=== PATIENT | female | born 1940 | race Caucasian/White ===

== ENCOUNTER 2023-08-01 14:45 | Observation (INO) | payer MEDICARE, SELFPAY ==
[2023-08-01 14:49] VITALS: BP 121/80; PULSE 69; RESP 18; TEMP 36.2; O2SAT 100; BMI 25.7
--- NOTE | 2023-08-01 15:33 | ED.GENADULT ---
HPI - General Adult General Chief complaint: Extremity Pain/Injury, Lower <Gavin Aguilera MD - Last Filed: 08/01/23 17:42> Stated complaint: Hip, L leg pain <Gavin Aguilera MD - Last Filed: 08/01/23 17:42> Time Seen by Provider: 08/01/23 14:50 <Gavin Aguilera MD - Last Filed: 08/01/23 17:42> History of Present Illness HPI narrative: Patient presents to the emergency department complaining of left leg pain. Patient fell the week of and has been dealing with pain in her left leg. Per patient she was diagnosed with stress fractures for this she was given tramadol and pain has been notably worse for the last few weeks. 82-year-old woman presenting to the emergency department with worsening left hip area pain. Was seen in affiliated urgent care and diagnosed with a left pubic ramus fracture on plain film/ x-ray imaging in mid May following a fall. Subsequently with persistent left hip/left leg pain was seen on 07/25 by orthopedics. We are able to obtain imaging results and notes from these encounters at [facility]. Was initiated on tramadol for pain relief at this time. Evidently XR pelvis one view was unremarkable at that time but MRI images were ordered outpatient. These MRI images of left hip and pelvis were completed on 07/28 showing nondisplaced insufficiency fractures of both sacral alae and left superior and inferior pubic rami fractures along with a fluid collection measuring 3-1/2 by nearly 5 cm suspected to be subacute hematoma within the left obturator externus musculature. No intervention apparently recommended yet. See has been experiencing some constipation. Denies dysuria or frequency. On exam I note that she is wearing a Attends and there is a light smell of urine. Has been able to ambulate with a cane but it has caused a lot of pain. Over the few days has had increasing pain just ?terrible pain?. Tramadol is not helpful. 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 <Gavin Aguilera MD - Last Filed: 08/01/23 17:42> Related Data Home medications: Home Medications ?Medication ?Instructions ?Recorded ?Confirmed amlodipine 5 mg tablet 5 mg PO DAILY 06/16/23 06/16/23 escitalopram oxalate 20 mg tablet 20 mg PO DAILY 06/16/23 06/16/23 lisinopril 20 1 tab PO DAILY 06/16/23 06/16/23 mg-hydrochlorothiazide 25 mg tablet <Gavin Aguilera MD - Last Filed: 08/01/23 17:42> Allergies/adverse reactions: Allergies Allergy/AdvReac Type Severity Reaction Status Date / Time Penicillins Allergy Verified 08/01/23 17:07 <Gavin Aguilera MD - Last Filed: 08/01/23 17:42> Review of Systems Status of ROS: Reports: 6 or more systems reviewed and unremarkable except as noted in History and below <Gavin Aguilera MD - Last Filed: 08/01/23 17:42> PFSH PFS Social History: Social History Smoking Status: Never smoker Do you use any of these nicotine containing products: None Second hand tobacco smoke exposure: No How often do you have a drink containing alcohol: never AUDIT-C Alcohol total score: 0 Non-prescribed substance use: denies use service: No <Gavin Aguilera MD - Last Filed: 08/01/23 17:42> Exam Narrative: Exam Narrative: Very pleasant. Mildly anxious in apparent discomfort. Tries to cooperate with exam and assists to role in exam were groaning in pain. She is breathing easily lungs appear to be clear. Heart in regular rate and rhythm. No significant lower extremity edema noted. Abdomen is soft and full in the lower abdomen. She is mildly tender to palpation in the mid suprapubic area and onto the pubic symphysis and again at the anterior iliac crest on the left. She has no inflammatory changes or bruising evident about the hips. The left upper gluteal musculature is quite tender without discrete swelling appreciated and is tender generally about the left greater trochanter. <Gavin Aguilera MD - Last Filed: 08/01/23 17:42> Const: Vital Signs, click to edit/add: Vital Signs - 24 hr 08/01/23 14:49 Temperature 97.2 F L Pulse Rate [Left P ulse Oximeter] 69 Respiratory Rate 18 Blood Pressure [Le ft Upper Arm] 121/80 Pulse Oximetry 100 Oxygen Delivery Me thod Room Air <Gavin Aguilera MD - Last Filed: 08/01/23 17:42> Vital Signs, click to edit/add: Vital Signs - 24 hr 08/01/23 14:49 Temperature 97.2 F L Pulse Rate [Left P ulse Oximeter] 69 Respiratory Rate 18 Blood Pressure [Le ft Upper Arm] 121/80 Pulse Oximetry 100 Oxygen Delivery Me thod Room Air <Waqar Worrell MD - Last Filed: 08/01/23 19:59> Documenting provider has reviewed patient's vital signs: yes <Gavin Aguilera MD - Last Filed: 08/01/23 17:42> Course Course ED Course: Patient signed at the Dr. Worrell at shift change -17 30. 82-year-old female with a conical fall about 8 or 9 weeks ago around [facility] leading to pelvic pain. You know she is already been diagnosed with low nondisplaced pubic rami fracture. She apparently we had already had follow-up with [facility]. She had an MRI. She has been told that her fractures are nonoperative. They are trying to treat her pain with tramadol. Patient and family report tramadol has been Holy ineffective in managing her pain. She is having progressively worsening pain in her left groin and left buttock for the past week. No new falls. They came here to the ER [place] today saying her pain is uncontrolled. She was not able to sleep last night and she is having a lot of pain when she walks. Dr. Espinoza ordered repeat CT scan Impression: 1. Left pubic tubercle fracture with extension to the superior and inferior pubic rami with hematoma formation in the left obturator externus muscle as detailed above. 2. Small focus of chondroid calcification seen adjacent to the left acetabulum. Recommend correlation with prior imaging if available; otherwise, when patient`s clinical course improves, recommend dedicated contrast MR examination of the left hip for further examination. We do not have imaging from previous MRI for comparison. However there is her report from the MRI done at [facility] on 07/28 Impression: 1. Insufficiency fractures of both the sacral alae. There is much more edema on the left and these may be differing chronicity. No significant displacement 2. Insufficiency fractures on the left pubic rami. Surrounding bony edema extends into the pubic symphysis 3. Both hips negative for fracture 4. Degenerative changes of both hip joints 5. There is a presumed fluid collection within the left obturator externus adjacent to the pubic rami fractures which most likely represents a subacute hematoma. This measures 3.3 x 3.4 x 4.8 cm 6. Degenerative change at the SI joints bilaterally 7. Reactive edema versus muscle strain within the left obturator externus and pectineus 8. Chronic appearing tendinopathy and partial tearing of the gluteal tendons with fluid in the trochanteric bursa bilaterally. Findings are likely chronic as there is some fatty infiltration and atrophy of the gluteal musculature bilaterally. I recheck the patient. She had had some good improvement of her pain after receiving 2 Hubertus tablets ordered by Dr. Roque. However after about 2 hours for pain was recurring. Not as bad as prior to the pain meds but still not tolerable for the patient. She was not really able to get up and do an ambulation trial because of pain. She did write a wheelchair down the hallway and was able to transfer onto the toilet and back. In long discussion with the patient and her family we do not feel that it is a good option for her to discharge home with oral pain meds since she is really not adequately controlled on hydrocodone and likely would have unsuccessful pain management with oral oxycodone. Therefore will administer IV Dilaudid 0.5 mg IV here. We will admit to the hospitalist for pain control. We also consulted with Orthopedics. Discussed with Nkechi MA. They will consult in the morning. Pubic rami and nondisplaced sacral alar fractures typically managed non operatively. They may need to repeat MRI to recheck possible left acetabular abnormality noted on the CT scan today. Patient is agreeable to be admitted for pain control. Family agreeable. Accepted by Dr. Aguirre <Waqar Worrell MD - Last Filed: 08/01/23 19:59> Vital Signs Vital signs: Initial Vital Signs Temperature 97.2 F L 08/01/23 14:49 Temperature Source Temporal Artery Scan 08/01/23 14:49 Pulse Rate 69 08/01/23 14:49 Pulse Rhythm Regular 08/01/23 14:49 Pulse Strength 3+ Normal 08/01/23 14:49 Respiratory Rate 18 08/01/23 14:49 Blood Pressure 121/80 08/01/23 14:49 Blood Pressure Mean 93 08/01/23 14:49 Blood Pressure Position Sitting 08/01/23 14:49 Pulse Oximetry 100 06/03/24 14:49 Oxygen Delivery Method Room Air 08/01/23 14:49 Vital Signs Temperature 97.2 F L 08/01/23 14:49 Pulse Rate 69 08/01/23 14:49 Respiratory Rate 18 08/01/23 14:49 Blood Pressure 121/80 08/01/23 14:49 Pulse Oximetry 100 08/01/23 14:49 Oxygen Delivery Method Room Air 08/01/23 14:49 Temperature 97.2 F L 08/01/23 14:49 Pulse Rate 69 08/01/23 14:49 Respiratory Rate 18 08/01/23 14:49 Blood Pressure 121/80 08/01/23 14:49 Pulse Oximetry 100 08/01/23 14:49 Oxygen Delivery Method Room Air 08/01/23 14:49 <Gavin Aguilera MD - Last Filed: 08/01/23 17:42> Initial Vital Signs Temperature 97.2 F L 08/01/23 14:49 Temperature Source Temporal Artery Scan 08/01/23 14:49 Pulse Rate 69 08/01/23 14:49 Pulse Rhythm Regular 08/01/23 14:49 Pulse Strength 3+ Normal 08/01/23 14:49 Respiratory Rate 18 08/01/23 14:49 Blood Pressure 121/80 08/01/23 14:49 Blood Pressure Mean 93 08/01/23 14:49 Blood Pressure Position Sitting 08/01/23 14:49 Pulse Oximetry 100 08/01/23 14:49 Oxygen Delivery Method Room Air 08/01/23 14:49 Vital Signs Temperature 97.2 F L 08/01/23 14:49 Pulse Rate 69 08/01/23 14:49 Respiratory Rate 18 08/01/23 14:49 Blood Pressure 121/80 08/01/23 14:49 Pulse Oximetry 100 08/01/23 14:49 Oxygen Delivery Method Room Air 08/01/23 14:49 Temperature 97.2 F L 08/01/23 14:49 Pulse Rate 69 08/01/23 14:49 Respiratory Rate 18 08/01/23 14:49 Blood Pressure 121/80 08/01/23 14:49 Pulse Oximetry 100 08/01/23 14:49 Oxygen Delivery Method Room Air 08/01/23 14:49 <Waqar Worrell MD - Last Filed: 08/01/23 19:59> Medications Administered Medications: Generic Name Dose Route Start Last Admin Trade Name Freq PRN Reason Stop Dose Admin Hydromorphone HCl 0.5 mg 08/01/23 19:05 08/01/23 19:15 Hydromorphone 0.5 Mg/0.5 Ml Inj IVP 0.5 mg Q1H PRN Administration Pain Discontinued Medications Generic Name Dose Route Start Last Admin Trade Name Freq PRN Reason Stop Dose Admin Hydrocodone Bitart/Acetaminophen 2 tab 08/01/23 15:25 08/01/23 15:38 Hydrocodone-Acetamin 5-325 Mg 1 Tab PO 08/01/23 15:26 2 tab ONCE ONE Administration Sodium Chloride 1,000 mls @ 1,000 mls/hr 08/01/23 16:02 08/01/23 17:42 0.9 % Sodium Chloride 1000 Ml IV 08/01/23 17:01 Infused .Q1H ONE Infusion Senna/Docusate Sodium 1 tab 08/01/23 15:24 08/01/23 15:38 Sennosides/Docusate Tablet PO 08/01/23 15:25 1 tab ONCE ONE Administration <Gavin Aguilera MD - Last Filed: 08/01/23 17:42> Generic Name Dose Route Start Last Admin Trade Name Freq PRN Reason Stop Dose Admin Hydromorphone HCl 0.5 mg 08/01/23 19:05 08/01/23 19:15 Hydromorphone 0.5 Mg/0.5 Ml Inj IVP 0.5 mg Q1H PRN Administration Pain Discontinued Medications Generic Name Dose Route Start Last Admin Trade Name Freq PRN Reason Stop Dose Admin Hydrocodone Bitart/Acetaminophen 2 tab 08/01/23 15:25 08/01/23 15:38 Hydrocodone-Acetamin 5-325 Mg 1 Tab PO 08/01/23 15:26 2 tab ONCE ONE Administration Sodium Chloride 1,000 mls @ 1,000 mls/hr 08/01/23 16:02 08/01/23 17:42 0.9 % Sodium Chloride 1000 Ml IV 08/01/23 17:01 Infused .Q1H ONE Infusion Senna/Docusate Sodium 1 tab 08/01/23 15:24 08/01/23 15:38 Sennosides/Docusate Tablet PO 08/01/23 15:25 1 tab ONCE ONE Administration <Waqar Worrell MD - Last Filed: 08/01/23 19:59> Medical Decision Making MDM Narrative Medical decision making narrative: Initially did not have documentation from [facility]. Need to clarify really what this imaging was. I would have concern at this point expanding hematoma given the escalation in pain that she describes. Could simply be inadequate pain management for existing fractures. These would otherwise be nonoperable fractures. She does not describe radicular symptoms consistent with lumbar spine injury or radiculopathy in that regard. On imaging I would anticipate evaluating for urinary retention with overflow incontinence as well. Would like to trial some oral pain management as will need to transition to that regardless of whether not will be hospitalized. Did give 2 tablets of 5/325 Hubertus along with a tablet of senna. Gave a L of normal saline IV as well. On reassessment is a little bit sleepy but clearly markedly improved. Seems relieved. She is flexing her left thigh without apparent pain. Labs did return with sodium of 127. Will need to clarify chronicity here. She does take Dyazide. I would presume will be approximately 129 after fluid resuscitation given here today. Pending yet had handoff at change of shift is IV contrasted imaging of her pelvis. At this point would need to reassess for adequate management of pain such that she could manage at home with family support verses admission or surgical intervention for expanding hematoma. Pending also is urinalysis. Hemoglobin is good at 13.3. Will need follow-up for hyponatremia as well. <Gavin Aguilera MD - Last Filed: 08/01/23 17:42> Medical Records Medical records reviewed: Yes I reviewed the patient's medical records <Gavin Aguilera MD - Last Filed: 08/01/23 17:42> Lab Data Lab results reviewed: Yes I reviewed the patient's lab results <Gavin Aguilera MD - Last Filed: 08/01/23 17:42> Labs: Lab Results 08/01/23 08/01/23 Range/Units 16:20 18:27 WBC 11.05 H (4.50-11.00) K/uL RBC 4.43 (4.00-5.20) m/uL Hgb 13.3 (12.0-16.0) gm/dL Hct 38.5 (33.0-51.0) % MCV 87 (80-100) fL MCH 30 (26-34) pg MCHC 35 (32-36) gm/dL RDW Coeff of John 12.6 (11.5-15.5) % Plt Count 366 (140-440) K/uL Neut % (Auto) 62.0 (42.0-72.0) % Lymph % (Auto) 27.2 (20-44) % [place] % (Auto) 7.1 (0.0-11.0) % Eos % (Auto) 2.8 (0.0-7.0) % Baso % (Auto) 0.6 (0.0-3.0) % Neut # (Auto) 6.90 (1.7-7.0) K/uL Lymph # (Auto) 3.00 H (0.90-2.90) K/uL [place] # (Auto) 0.80 (0.00-0.90) K/UL Eos # (Auto) 0.30 (0.00-0.50) K/uL Baso # (Auto) 0.10 (0.00-0.30) K/uL Abs Immat Gran (auto) 0.00 (0.00-0.30) K/uL Imm/Tot Granulo (auto) 0.3 % Sodium 127 L (135-149) mmol/L Potassium 3.1 L (3.6-5.1) mmol/L Chloride 89 L (96-114) mmol/L Carbon Dioxide 29 (20-32) mmol/L Anion Gap 9 (7-15) mEq/L BUN 11 (7-30) mg/dL Creatinine 0.6 (0.5-1.5) mg/dL Estimated Creat Clear 38.10 Estimated GFR 90 ml/min Glucose 82 (60-115) mg/dL Calcium 9.2 (8.4-10.6) mg/dL Urine Color Yellow (Yellow) Urine Appearance Slightly Cloudy A (Clear) Urine pH 7.5 (5.0-8.5) Ur Specific [place] 1.015 (1.000-1.030) Urine Protein Negative (Negative) Urine Glucose (UA) Negative (Negative) Urine Ketones Negative (Negative) Urine Blood Trace-intact A (Negative) Urine Nitrite Negative (Negative) Urine Bilirubin Negative (Negative) Urine Urobilinogen 0.2 (0.2-1.0) Ur Leukocyte Esterase Negative (Negative) Urine RBC 0-2 (0-2) Urine WBC 0-2 (0-5) Ur Squamous Epith Cells Few (None-Few) Urine Bacteria Few A (None) <Gavin Aguilera MD - Last Filed: 08/01/23 17:42> Lab Results 08/01/23 08/01/23 Range/Units 16:20 18:27 WBC 11.05 H (4.50-11.00) K/uL RBC 4.43 (4.00-5.20) m/uL Hgb 13.3 (12.0-16.0) gm/dL Hct 38.5 (33.0-51.0) % MCV 87 (80-100) fL MCH 30 (26-34) pg MCHC 35 (32-36) gm/dL RDW Coeff of John 12.6 (11.5-15.5) % Plt Count 366 (140-440) K/uL Neut % (Auto) 62.0 (42.0-72.0) % Lymph % (Auto) 27.2 (20-44) % [place] % (Auto) 7.1 (0.0-11.0) % Eos % (Auto) 2.8 (0.0-7.0) % Baso % (Auto) 0.6 (0.0-3.0) % Neut # (Auto) 6.90 (1.7-7.0) K/uL Lymph # (Auto) 3.00 H (0.90-2.90) K/uL [place] # (Auto) 0.80 (0.00-0.90) K/UL Eos # (Auto) 0.30 (0.00-0.50) K/uL Baso # (Auto) 0.10 (0.00-0.30) K/uL Abs Immat Gran (auto) 0.00 (0.00-0.30) K/uL Imm/Tot Granulo (auto) 0.3 % Sodium 127 L (135-149) mmol/L Potassium 3.1 L (3.6-5.1) mmol/L Chloride 89 L (96-114) mmol/L Carbon Dioxide 29 (20-32) mmol/L Anion Gap 9 (7-15) mEq/L BUN 11 (7-30) mg/dL Creatinine 0.6 (0.5-1.5) mg/dL Estimated Creat Clear 38.10 Estimated GFR 90 ml/min Glucose 82 (60-115) mg/dL Calcium 9.2 (8.4-10.6) mg/dL Urine Color Yellow (Yellow) Urine Appearance Slightly Cloudy A (Clear) Urine pH 7.5 (5.0-8.5) Ur Specific [place] 1.015 (1.000-1.030) Urine Protein Negative (Negative) Urine Glucose (UA) Negative (Negative) Urine Ketones Negative (Negative) Urine Blood Trace-intact A (Negative) Urine Nitrite Negative (Negative) Urine Bilirubin Negative (Negative) Urine Urobilinogen 0.2 (0.2-1.0) Ur Leukocyte Esterase Negative (Negative) Urine RBC 0-2 (0-2) Urine WBC 0-2 (0-5) Ur Squamous Epith Cells Few (None-Few) Urine Bacteria Few A (None) <Waqar Worrell MD - Last Filed: 08/01/23 19:59> Discharge Plan Discharge Clinical Impression: Insufficiency fracture of pelvis, Hematoma of left hip, Left hip pain, Hyponatremia, Hypokalemia <Gavin Aguilera MD - Last Filed: 08/01/23 17:42> Patient Disposition: Admitted As Observation <Gavin Aguilera MD - Last Filed: 08/01/23 17:42> Condition: Improved <Gavin Aguilera MD - Last Filed: 08/01/23 17:42>
[2023-08-01] MEDS: HYDROCODONE-ACETAMIN 5-325 MG 1 TAB 2 TAB PO (15:38)
[2023-08-01] MEDS: SENNOSIDES/DOCUSATE TABLET 1 TAB PO (15:38)
--- NOTE | 2023-08-01 16:01 | CRLHL7_ITS ---
For Patients: As a result of the Century Cures Act, medical imaging exams and procedure reports are released immediately into your electronic medical record. You may view this report before your referring provider. If you have questions, please contact your health care provider. Indication: LEFT HIP HEMATOMA Technique: CT pelvis with IV contrast, 74 mL Isovue 370 Comparison: Pelvic radiographs on June 16, 2023 Findings: There is no evidence of bowel obstruction or inflammation. Sigmoid diverticulosis without evidence of acute diverticulitis. The bladder is unremarkable in appearance. Postsurgical changes of hysterectomy. No suspicious adnexal lesions. No free fluid or free air. No abscess. No abdominopelvic lymphadenopathy. Moderate calcific atherosclerosis of the aortoiliac system. There is a minimally comminuted fracture of the left pubic tubercle with slight extension to the superior and inferior left pubic rami. There is a fluid collection seen within/adjacent to the left obturator externus muscle measuring approximately 2.2 centimeters AP by 4.5 centimeters transverse by 3.3 centimeters craniocaudal. There is some developing dystrophic calcification seen along the anterior aspect of the fluid collection. 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 Small focus of chondroid calcification adjacent to the left acetabulum (series number 2, image 46). Soft tissue contusion within the subcutaneous fat of the left hip. Impression: 1. Left pubic tubercle fracture with extension to the superior and inferior pubic rami with hematoma formation in the left obturator externus muscle as detailed above. 2. Small focus of chondroid calcification seen adjacent to the left acetabulum. Recommend correlation with prior imaging if available; otherwise, when patient`s clinical course improves, recommend dedicated contrast MR examination of the left hip for further examination. Please note that all CT scans at this facility use dose modulation, iterative reconstruction, and/or weight-based dosing when appropriate to reduce radiation dose to as low as reasonably achievable. Dictated by Fede Anders MD @ 08/01/2023 6:40:22 PM (Electronically Signed)
[2023-08-01] MEDS: 0.9 % SODIUM CHLORIDE 1000 ml 1,000 ML IV (16:25)
[2023-08-01 16:28] LABS: Basophils Percent Auto 0.6 % (0.0-3.0); Eosinophils Percent Auto 2.8 % (0.0-7.0); Hematocrit 38.5 % (33.0-51.0); Hemoglobin* 13.3 gm/dL (12.0-16.0); Immature Granulocytes Pct Auto 0.3 %; Lymphocytes Percent Auto 27.2 % (20-44); Mean Corpuscular HGB Conc 35 gm/dL (32-36); Mean Corpuscular Hemoglobin 30 pg (26-34); Mean Corpuscular Volume 87 fL (80-100); Monocytes Percent Auto 7.1 % (0.0-11.0); Platelet Count* 366 K/uL (140-440); RDW Coefficient of Variation % 12.6 % (11.5-15.5); Red Blood Count 4.43 m/uL (4.00-5.20); White Blood Count* 11.05 K/uL (4.50-11.00)
[2023-08-01 16:34] LABS: Slide Review Reflex No
[2023-08-01 16:51] LABS: Chloride* 89 mmol/L (96-114); Potassium* 3.1 mmol/L (3.6-5.1); Sodium* 127 mmol/L (135-149)
[2023-08-01 16:54] LABS: Anion Gap 9 mEq/L (7-15); Blood Urea Nitrogen* 11 mg/dL (7-30); Carbon Dioxide* 29 mmol/L (20-32); Creatinine* 0.6 mg/dL (0.5-1.5); Estimated Glomerular Filt Rate 90 ml/min
[2023-08-01 16:55] LABS: Calcium* 9.2 mg/dL (8.4-10.6); Glucose* 82 mg/dL (60-115)
[2023-08-01 18:34] LABS: Appearance Urine Slightly Cloudy (Clear); Bilirubin Urine Negative (Negative); Blood Urine Trace-intact (Negative); Color Urine Yellow (Yellow); Glucose Urine Negative (Negative); Ketones Urine Negative (Negative); Leukocyte Esterase Urine Negative (Negative); Nitrite Urine Negative (Negative); Protein Urine Negative (Negative); Specific Gravity Urine 1.015 (1.000-1.030); Urobilinogen Urine 0.2 (0.2-1.0); pH Urine 7.5 (5.0-8.5)
[2023-08-01 19:10] LABS: Bacteria Urine Few; RBC Urine 0-2 (0-2); Squamous Epithelial Cell Urine Few (None-Few); WBC Urine 0-2 (0-5)
[2023-08-01] MEDS: HYDROmorphone 0.5 mg/0.5 ml inj IVP ×3 (19:15→23:43)
--- NOTE | 2023-08-01 19:57 | P.IMHP_ITS ---
Hospitalist- H&P: ADRIA History of Present Illness Date Seen: 08/01/23 Chief complaint: Hip, L leg pain Narrative: Jada Guy is a 82 year old woman who presents to the emergency department today for assessment of worsening left buttock pain. Indicates she was in her usual state of health until she sustained a fall about 1 week after . Roughly 1 week later she was assessed in urgent care setting and with the radiographic imaging was found to have ?stress fracture? of her pelvis. Patient was instructed on how to care for this and a nonsurgical fashion. Weight- bearing as tolerated. Tramadol intermittently as needed for pain control. She has had continued difficulty with this discomfort in the left buttock since. 1-2 weeks ago she had re-imaging done with MR scan at [facility] which demonstrated no worsening of the underlying fracture. She was instructed to continue to take her tramadol as needed for pain. Despite her efforts she has had worsening pain particularly with weight-bearing. Has been using a cane for a while to help with her ambulation. Finally she decided to come in for assessment today because the pain is simply not getting any better. Acknowledges constipation since taking the tramadol more regularly. Denies dysuria, urgency, frequency, hematuria. No fevers, rigors, diaphoresis. Acknowledges decreased appetite and increased disinterest in eating. Denies nausea or vomiting. Review of Systems Status of ROS: Reports: 10 or more systems reviewed and unremarkable except as noted in History and below Narrative: Aside from the original fall that she had about 1 week after , she has had no prior falls or fall since. She acknowledges feeling anxious about this whole matter. Acknowledges that her posture has changed considerably since the fall that she had about 1 week after . Her has advanced Alzheimer's dementia and is living in an assisted living facility in [place], [place]. They previously lived in [place], [place]. They have children and grandchildren live nearby. Patient so there large home in [place] and is now living independently in a town house. Her son, Mehran Guy, and his have been instrumental in helping the patient since she was planning to move to [place] in since she has moved to [place]. [facility] Medical History Macular degeneration of right eye ?H35.30 - Unspecified macular degeneration (ICD-10) Anxiety disorder ?F41.9 - Anxiety disorder, unspecified (ICD-10) Essential hypertension ?I10 - Essential (primary) hypertension (ICD-10) Social History Smoking Status: Never smoker Do you use any of these nicotine containing products: None Second hand tobacco smoke exposure: No How often do you have a drink containing alcohol: never AUDIT-C Alcohol total score: 0 Non-prescribed substance use: denies use service: No Meds Home Medications and Allergies Home Medications ?Medication ?Instructions ?Recorded ?Confirmed ?Type amlodipine 5 mg tablet 5 mg PO DAILY 06/16/23 06/16/23 History escitalopram oxalate 20 mg tablet 20 mg PO DAILY 06/16/23 06/16/23 History lisinopril 20 1 tab PO DAILY 06/16/23 06/16/23 History mg-hydrochlorothiazide 25 mg tablet Home Medication Comments: Injection of medication to right eye every 6 weeks at [facility] for macular degeneration. PreserVision orally once daily. Allergies Allergy/AdvReac Type Severity Reaction Status Date / Time Penicillins Allergy Verified 08/01/23 17:07 Exam Narrative: Exam Narrative: Examined patient in the emergency department. By the time I see her she appears comfortable and in no acute distress. Somewhat hard of hearing. Vision is adequate. Alert and oriented to self, place, time, situation. Friendly and cooperative. Able to remember and provide meaningful history. Tympanic membranes and external auditory canal normal bilaterally. Midline nasal septum. Dentition in good repair. Moist buccal mucosa. Conjugate vision. Pupils equally round and reactive to light and accommodation. Extraocular muscles are intact. Midline trachea. Supple neck. No JVD or hepatojugular reflux. No carotid bruits. No head neck lymphadenopathy. Lungs are clear to auscultation without wheezing, rhonchi, or rales. Chest wall excursions are full with respiratory efforts. No CVA tenderness. Heart tones with regular rhythm, normal S1-S2. PMI is not laterally displaced. Abdomen with active bowel sounds, soft, nontender. No rebound or guarding. No hepatosplenomegaly. Extremities without edema. Moves all 4 extremities. No focal motor neurologic deficits. Cranial nerves 3-12 grossly normal. No obvious ecchymosis or hematoma in left hip or pelvis or buttock. Some tenderness to palpation left iliac crest and left gluteus herb region. Const: Vital Signs, click to edit/add: Vital Signs - 24 hr 08/01/23 14:49 Temperature 97.2 F L Pulse Rate [Left P ulse Oximeter] 69 Respiratory Rate 18 Blood Pressure [Le ft Upper Arm] 121/80 Pulse Oximetry 100 Oxygen Delivery Me thod Room Air Hospitalist - H&P: Result Labs Labs: Short CBC 08/01/23 Range/Units 16:20 WBC 11.05 H (4.50-11.00) K/uL Hgb 13.3 (12.0-16.0) gm/dL Hct 38.5 (33.0-51.0) % Plt Count 366 (140-440) K/uL BMP 08/01/23 16:20 Sodium 127 L Potassium 3.1 L Chloride 89 L Carbon Dioxide 29 BUN 11 Creatinine 0.6 Glucose 82 Calcium 9.2 Urine 08/01/23 Range/Units 18:27 Urine Color Yellow (Yellow) Urine Appearance Slightly Cloudy A (Clear) Urine pH 7.5 (5.0-8.5) Ur Specific [place] 1.015 (1.000-1.030) Urine Protein Negative (Negative) Urine Glucose (UA) Negative (Negative) Imaging CT scan - pelvis: Radiologist's impression: Impression: 1. Left pubic tubercle fracture with extension to the superior and inferior pubic rami with hematoma formation in the left obturator externus muscle as detailed above. 2. Small focus of chondroid calcification seen adjacent to the left acetabulum. Recommend correlation with prior imaging if available; otherwise, when patient`s clinical course improves, recommend dedicated contrast MR examination of the left hip for further examination. Assessment and Plan Assessment and plan (1) Insufficiency fracture of pelvis: Problem comment: -will ask Orthopedic surgery to consult while patient is in hospital. Emergency department staff have already reached out for this consultation. -physical therapy and occupational therapy consultation as well as medical social consultant consultation. Consider transitional care services for short period of time, until such time as it can be deemed appropriate for her to return home safely. -attempt greater pain management while in hospital. Status: Acute (2) Left hip pain: Status: Acute (3) Hyponatremia: Problem comment: -likely related to use of hydrochlorothiazide. Doubt related to lisinopril and escitalopram. Will hold hydrochlorothiazide. -1800 fluid restriction. Normal saline bolus given in ED. monitor sodium. Status: Acute (4) Hypokalemia: Problem comment: -likely related to use of hydrochlorothiazide with insufficient supplementation. Hold hydrochlorothiazide. -potassium supplementation and monitoring. Status: Acute (5) Closed fracture of left pelvis: Status: Acute (6) Constipation: Problem comment: -Initiate senna 2 tabs p.o. b.i.d. and titrate upper down as warranted. Status: Acute Plan 1. Reviewed impression with patient. 2. Answered patient's questions are satisfaction. 3. Patient agreeable with above stated plans and recommendations. Total Time Spent Total Time Spent: 60 minutes
[2023-08-01 21:01] VITALS: BP 114/67; PULSE 63; RESP 16; TEMP 36.9; O2SAT 96; BMI 26.2
[2023-08-01] MEDS: POTASSIUM CHLORIDE 10 MEQ CAPSULE ER 40 MEQ PO ×2 (21:17→23:42)
[2023-08-01] MEDS: ACETAMINOPHEN 325 MG TABLET 650 MG PO (21:17)
[2023-08-01] MEDS: SODIUM CHLORIDE 0.9 % (FLUSH) 10 ML SYRINGE 5 ML IVF ×2 (21:18→23:44)
[2023-08-01] MEDS: IBUPROFEN 400 MG TABLET PO (21:18)
[2023-08-01] MEDS: SENNOSIDES/DOCUSATE TABLET 2 TAB PO (21:19)
[2023-08-01 23:00] VITALS: RESP 20; O2SAT 94
--- NOTE | 2023-08-01 23:43 | PC.NURSE ---
End of Shift: Patient admitted to 260. Pleasant and cooperative. Afebrile. Rating pain in left pelvis up to 8/10 and PRN Dilaudid given x1. Up to bathroom with SBA. Tolerating regular diet with no nausea.
[2023-08-01 23:45] VITALS: BP 109/57; PULSE 61; RESP 20; TEMP 36.7; O2SAT 94
[2023-08-02] MEDS: HYDROmorphone 0.5 mg/0.5 ml inj IVP ×2 (03:43→08:03)
[2023-08-02] MEDS: SODIUM CHLORIDE 0.9 % (FLUSH) 10 ML SYRINGE 5 ML IVF ×2 (03:44→08:58)
[2023-08-02 03:48] VITALS: BP 132/56; PULSE 64; RESP 18; TEMP 36.4; O2SAT 96
--- NOTE | 2023-08-02 05:25 | PC.NURSE ---
[id number]: Patient cooperative with cares. Rates pain 8-9/10 with PRN Dilaudid x2 for relief. Active ice to L. buttock. SBA w/walker.
[2023-08-02 06:50] LABS: HCO3 VBG 30 mmol/L (21-28); Lactate* 0.8 mmol/L (0.5-1.9); PCO2 VBG 54 mmHG (40-50); PO2 VBG 33.3 mmHG (25-47); pH VBG 7.363 (7.32-7.43)
[2023-08-02 06:52] LABS: Hematocrit 37.5 % (33.0-51.0); Hemoglobin* 12.7 gm/dL (12.0-16.0); Mean Corpuscular HGB Conc 34 gm/dL (32-36); Mean Corpuscular Hemoglobin 30 pg (26-34); Mean Corpuscular Volume 89 fL (80-100); Platelet Count* 398 K/uL (140-440); White Blood Count* 10.36 K/uL (4.50-11.00)
[2023-08-02 07:01] LABS: Slide Review Reflex No
[2023-08-02 07:16] LABS: Chloride* 97 mmol/L (96-114); Sodium* 130 mmol/L (135-149)
[2023-08-02 07:17] LABS: Potassium* 4.5 mmol/L (3.6-5.1)
[2023-08-02 07:19] LABS: Creatinine* 0.6 mg/dL (0.5-1.5); Estimated Glomerular Filt Rate 90 ml/min
[2023-08-02 07:20] LABS: Anion Gap 5 mEq/L (7-15); Blood Urea Nitrogen* 12 mg/dL (7-30); Calcium* 8.9 mg/dL (8.4-10.6); Carbon Dioxide* 28 mmol/L (20-32); Glucose* 77 mg/dL (60-115); Magnesium* 1.8 mg/dL (1.5-2.6); Phosphorus* 3.1 mg/dL (2.5-4.5)
[2023-08-02 07:23] LABS: C Reactive Protein* 2.9 mg/dL (0.5-1.0)
[2023-08-02 07:34] LABS: NT Pro B Type NatriureticPept* 461 pg/mL
[2023-08-02 08:07] VITALS: BP 147/68; PULSE 64; RESP 14; TEMP 36.8; O2SAT 98
[2023-08-02] MEDS: ACETAMINOPHEN 325 MG TABLET 650 MG PO (08:56)
[2023-08-02] MEDS: lisinopriL 20 MG TABLET PO (08:56)
[2023-08-02] MEDS: ESCITALOPRAM 10 MG TABLET 20 MG PO (08:56)
[2023-08-02] MEDS: AMLODIPINE 5 MG TABLET PO (08:56)
--- NOTE | 2023-08-02 09:59 | P.ORCN_ITS ---
History of Present Illness HPI Time Seen by Provider: 08:00 Date Seen: 08/02/23 Consult date: 08/02/23 Requesting physician: Torrie Arce Consult reason: fracture Chief complaint: Pelvic fracture; left hip pain Narrative: Orthopedic consult requested this morning. Jada presented to [facility] ED yesterday evening (08/01/23) for left hip pain. Jada has a recent PMHx of left pelvic fracture (pubic tubercle with extension to superior and inferior pubic rami) from a fall that occurred on 2023. Patient was seen by [facility], where radiographs and an MRI was performed. Non-operative management was recommended. Jada was provided a script for tramadol, which she explains is not at all controlling her pain. Patient was admitted overnight for help with pain management. Jada is resting comfortably in her bed. She c/o moderate-severe pounding left buttocks pain and she is clearly pointing to her left buttocks near the base of her pelvis. Denies left hip pain/left groin pain. Denies new fall/injuries since her initial fall May 29, 2023. At baseline, Jada ambulates with a cane. She explains her pain is better managed with hydromorphone and acetaminophen. Denies numbness/tingling distally. [facility] Medical History Macular degeneration of right eye ?H35.30 - Unspecified macular degeneration (ICD-10) Anxiety disorder ?F41.9 - Anxiety disorder, unspecified (ICD-10) Essential hypertension ?I10 - Essential (primary) hypertension (ICD-10) Social History What is your current living situation?: I presently have a place to live Problems where you live: no known problems Problems where you live details: N/A In the past 12 months, utilities in danger of being shut off: yes In past 12 months, lack of transportation kept you from medical appts, meetings, work, or getting things needed for daily living: no In the past 12 mos, have been you worried that your food would run out before you had money to buy more?: never true In the past 12 mos, the food you bought just didn't last and you didn't have money to buy more?: never true Highest level of school completed/degree received: Associate degree: occupational, technical, vocational program Smoking Status: Current every day smoker What tobacco products do you use: cigarettes Do you use any of these nicotine containing products: None Second hand tobacco smoke exposure: No How often do you have a drink containing alcohol: monthly or less AUDIT-C Alcohol total score: 1 Non-prescribed substance use: denies use Caffeine: Yes How often does anyone, including family, friends and others, physically hurt you : never How often does anyone, including family, friends and others, insult or talk down to you: never How often does anyone, including family, friends and others, threaten you with harm: never How often does anyone, including family, friends and others, scream or curse at you: never service: No Meds Home Medications and Allergies Home Medications ?Medication ?Instructions ?Recorded ?Confirmed ?Type amlodipine 5 mg tablet 5 mg PO DAILY 06/16/23 08/02/23 History escitalopram oxalate 20 mg tablet 20 mg PO DAILY 06/16/23 08/02/23 History lisinopril 20 1 tab PO DAILY 06/16/23 08/02/23 History mg-hydrochlorothiazide 25 mg tablet vitamins A,C,U-[id number]-ftausv 4,296 1 cap PO DAILY 08/02/23 08/02/23 History mcg-226 mg-90 mg capsule (PreserVision AREDS) Allergies Allergy/AdvReac Type Severity Reaction Status Date / Time Penicillins Allergy Verified 08/01/23 17:07 Ortho Exam Narrative Exam Narrative: Patient is alert and oriented x3. No acute distress. Converses with nonlabored breathing. Left hip exam: Log roll negative. Abduction: 30 degrees without left groin pain. Denies left groin pain with internal and external hip rotation. Intact straight leg raise. Nontender over greater trochanter. Moderate tenderness left pelvic ischium and left sacroiliac joint. Left calve is supple and nontender without excessive warmth. CMS intact with 2+ Dorsalis pedis and Posterior Tibial pulses, digits pink, warm with brisk cap refill. Const Vital Signs, click to edit/add: Vital Signs - 24 hr 08/01/23 14:49 08/01/23 21:01 08/01/23 23:00 Temperature 97.2 F L 98.4 F Pulse Rate [Left Pulse Oximeter] 69 63 Respiratory Rate 18 16 20 Blood Pressure [Left Arm] 114/67 Blood Pressure [Left Upper Arm] 121/80 Blood Pressure [Right Arm] Pulse Oximetry 100 96 94 Oxygen Delivery Method Room Air Room Air Room Air 08/01/23 23:45 08/02/23 03:48 08/02/23 08:07 Temperature 98.0 F 97.6 F 98.3 F Pulse Rate [Left Pulse Oximeter] 61 64 64 Respiratory Rate 20 18 14 Blood Pressure [Left Arm] 109/57 L 132/56 L Blood Pressure [Left Upper Arm] Blood Pressure [Right Arm] 147/68 H Pulse Oximetry 94 96 98 Oxygen Delivery Method Room Air Room Air Room Air 08/02/23 08:07 08/02/23 08:07 Temperature Pulse Rate [Left Pulse Oximeter] 64 Respiratory Rate 14 14 Blood Pressure [Left Arm] Blood Pressure [Left Upper Arm] Blood Pressure [Right Arm] Pulse Oximetry 98 Oxygen Delivery Method Room Air Results Labs Labs: Laboratory Results - last 48 hr 08/01/23 08/01/23 08/02/23 16:20 18:27 06:28 WBC 11.05 H 10.36 RBC 4.43 4.20 Hgb 13.3 12.7 Hct 38.5 37.5 MCV 87 89 MCH 30 30 MCHC 35 34 RDW Coeff of John 12.6 Plt Count 366 398 Neut % (Auto) 62.0 Lymph % (Auto) 27.2 [place] % (Auto) 7.1 Eos % (Auto) 2.8 Baso % (Auto) 0.6 Neut # (Auto) 6.90 Lymph # (Auto) 3.00 H [place] # (Auto) 0.80 Eos # (Auto) 0.30 Baso # (Auto) 0.10 Abs Immat Gran (auto) 0.00 Imm/Tot Granulo (auto) 0.3 VBG pH 7.363 VBG pCO2 54 H VBG pO2 33.3 VBG HCO3 30 H Sodium 127 L 130 L Potassium 3.1 L 4.5 Chloride 89 L 97 Carbon Dioxide 29 28 Anion Gap 9 5 L BUN 11 12 Creatinine 0.6 0.6 Estimated Creat Clear 38.10 38.10 Estimated GFR 90 90 Glucose 82 77 Lactate 0.8 Calcium 9.2 8.9 Phosphorus 3.1 Magnesium 1.8 C-Reactive Protein 2.9 H NT-Pro-B Natriuret Pep 461 TSH 2.880 Urine Color Yellow Urine Appearance Slightly Cloudy A Urine pH 7.5 Ur Specific [place] 1.015 Urine Protein Negative Urine Glucose (UA) Negative Urine Ketones Negative Urine Blood Trace-intact A Urine Nitrite Negative Urine Bilirubin Negative Urine Urobilinogen 0.2 Ur Leukocyte Esterase Negative Urine RBC 0-2 Urine WBC 0-2 Ur Squamous Epith Cells Few Urine Bacteria Few A Diagnostic results Additional Comments: Reviewed pelvic CT dated 08/01/23 from [facility]. This shows: a mi nimally displaced left pubic tubercle fracture with extension to the superior and inferior pubic rami. Also, a small focus of chondroid calcification near the left acetabulum. CT was also reviewed with Dr. Cline, who also noticed a minimally displaced left sacral ala fracture. 2-view left hip radiographs were also reviewed from [facility] dated 06/16/23, which also shows moderate left hip joint space narrowing with osteophytic spurring. MRI report from [facility] dated 07/29/23 was reviewed (images not available). Impression: 1. Insufficiency fractures of both the sacral alae. There is much more edema on the left and these may be differing chronicity. No significant displacement 2. Insufficiency fractures on the left pubic rami. Surrounding bony edema extends into the pubic symphysis 3. Both hips negative for fracture 4. Degenerative changes of both hip joints 5. There is a presumed fluid collection within the left obturator externus adjacent to the pubic rami fractures which most likely represents a subacute hematoma. This measures 3.3 x 3.4 x 4.8 cm 6. Degenerative change at the SI joints bilaterally 7. Reactive edema versus muscle strain within the left obturator externus and pectineus 8. Chronic appearing tendinopathy and partial tearing of the gluteal tendons with fluid in the trochanteric bursa bilaterally. Findings are likely chronic as there is some fatty infiltration and atrophy of the gluteal musculature bilaterally. Assessment and Plan Assessment and plan (1) Closed fracture of left pelvis: Problem comment: DOI: 05/29/23 Status: Acute Assessment and Plan: Jada's pain is consistent with her left sacral ala fracture and left pubic tubercle fracture with extension into the left superior and inferior pubic rami. Radiographs and pelvic CT were also reviewed with Dr. Cline. Our Orthopedic team is in agreement with [facility] recommendation that this fracture may be treated non-operatively. Considered and ruled out left hip osteoarthritis as a contributor to her pain. Jada's pain is located over her fracture site. She denies left hip/groin pain. Therefore, I do not believe an intra-articular corticosteroid injection would be of benefit to Jada. Jada may weightbear as tolerated with a walker or cane for assistance. I explained to Jada that less time sedentary would likely improve her pain by alleviating pressure on her pelvis/fracture sites. Patient would benefit from outpatient PT/OT. For pain management, I recommend ice, acetaminophen and/or NSAIDs PRN and may consider [place] PRN for severe pain. Jada will discontinue use of tramadol. Jada will follow-up at our Orthopedic clinic in 1-2 weeks. All questions were answered. Total time spent: Total time spent is greater than 50% in coordination of care (as documented) at patient's floor/unit and/or counseling patient: (2) Constipation: Problem comment: -Initiate senna 2 tabs p.o. b.i.d. and titrate upper down as warranted. Status: Acute Assessment and Plan: Minimize use of narcotics. Total time spent: Total time spent is greater than 50% in coordination of care (as documented) at patient's floor/unit and/or counseling patient:
[2023-08-02] MEDS: LIDOCAINE 5% PATCH 1 PATCH TRANSDERMA (11:10)
[2023-08-02] MEDS: OXYCODONE 5 MG TABLET PO (11:12)
--- NOTE | 2023-08-02 11:22 | P.DS_ITS ---
DS: Providers Provider Date Seen: 08/02/23 Date of admission: 08/01/23 19:41 Primary care physician: Not a Local Provider Admitting Clinician: Vicente Aguirre MD Consults: 08/01/23 20:23 Consult to Occupational Therapy [CONS] Routine Comment: Reason(s) for OT Consult:: Evaluate and Treat Any Restrictions?:: No Restrictions Consult to Physical Therapy [CONS] Routine Comment: Reason(s) for PT Consult:: Evaluate and Treat Any Restrictions?:: No Restrictions Consult to Physician [CONS] Routine Comment: Consulting Provider: Jose Klein Has provider been notified: Yes Consult to Hat Trimmer [CONS] Routine Comment: Reason for Consult:: Discharge Planning Needs Attending Physician on discharge: LAMBERTO Jiménez, CLARITZA [facility] Date of Discharge: 08/02/23 DS: Diagnosis Discharge Diagnosis (1) Closed fracture of left pelvis: Status: Acute Problem details: DOI: 05/29/23 Admitted with ongoing pain, not relieved with oral tramadol. Repeat imaging with MRI at [facility] completed. Repeat CT scan in ED shows left pubic tubercle fracture with extension to superior and inferior pubic rami with hematoma formation in the left obturator externus muscle. Small focus of chondroid calcification seen adjacent to the left acetabulum. Orthopedic surgery, Dr. Cline reviewed imaging also noting a sacral fracture. Seen by Orthopedic surgery on morning of discharge, discussed intra-articular corticosteroid injection which is believed not to be of benefit as pain is located over fracture site. PT/OT consulted. Plan is to continue improving mobility, pain management with ice/heat, OTC lidocaine patch, oxycodone p.r.n. (discontinuing tramadol). Outpatient follow-up in orthopedic clinic 1-2 weeks. (2) Constipation: Status: Acute Problem details: Continue stool softener while taking narcotic (3) Hyponatremia: Status: Acute Problem details: Thought to be likely related to use of hydrochlorothiazide. Doubt related to lisinopril and escitalopram. Will hold hydrochlorothiazide during hospital course. Sodium improved to 130 from 127 prior to discharge. Outpatient follow-up with PCP DS: Summary Hospital Course Hospital Course: [age] old female past medical history significant for fall in April resulting in pelvic fracture, hematoma was admitted to the medical floor for further management ongoing pain related to fall. Course of care and details as noted above. Assessed by PT/OT as well as Orthopedic surgery. Continued nonsurgical management with improving mobility, lidocaine patch OTC, ice/heat, oxycodone as needed (discontinuing tramadol). Outpatient Orthopedic follow-up 1-2 weeks. Patient will need to establish PCP care at the [facility]. Remainder of chronic medical comorbidities were monitored and managed with home medications. Status at Discharge Functional status at discharge: uses cane/walker Overall status at discharge: patient is progressing back to baseline Time Spent with Patient Time attestation: Total time spent providing and/or coordinating discharge services: Time spent: Greater than 30 minutes Exam Narrative: Exam Narrative: PHYSICAL EXAM General: Pleasant, conversant, NAD Cardiovascular: RRR Pulmonary: No dyspnea Neurological: Alert, answering questions appropriately Skin: Warm, dry. Const: Vital Signs, click to edit/add: Vital Signs - 24 hr 08/01/23 14:49 08/01/23 21:01 08/01/23 23:00 Temperature 97.2 F L 98.4 F Pulse Rate [Left P ulse Oximeter] 69 63 Respiratory Rate 18 16 20 Blood Pressure [Le ft Arm] 114/67 Blood Pressure [Le ft Upper Arm] 121/80 Blood Pressure [Ri ght Arm] Pulse Oximetry 100 96 94 Oxygen Delivery Me thod Room Air Room Air Room Air 08/01/23 23:45 08/02/23 03:48 08/02/23 08:07 Temperature 98.0 F 97.6 F 98.3 F Pulse Rate [Left P ulse Oximeter] 61 64 64 Respiratory Rate 20 18 14 Blood Pressure [Le ft Arm] 109/57 L 132/56 L Blood Pressure [Le ft Upper Arm] Blood Pressure [Ri ght Arm] 147/68 H Pulse Oximetry 94 96 98 Oxygen Delivery Me thod Room Air Room Air Room Air 08/02/23 08:07 08/02/23 08:07 Temperature Pulse Rate [Left P ulse Oximeter] 64 Respiratory Rate 14 14 Blood Pressure [Le ft Arm] Blood Pressure [Le ft Upper Arm] Blood Pressure [Ri ght Arm] Pulse Oximetry 98 Oxygen Delivery Me thod Room Air DS: Data Data Completed and Pending Labs on day of discharge: Labs from last 24 hours 06/04/24 06/03/24 06/03/24 06:28 18:27 16:20 WBC 10.36 11.05 H RBC 4.20 4.43 Hgb 12.7 13.3 Hct 37.5 38.5 MCV 89 87 MCH 30 30 MCHC 34 35 RDW Coeff of John 12.6 Plt Count 398 366 Neut % (Auto) 62.0 Lymph % (Auto) 27.2 [place] % (Auto) 7.1 Eos % (Auto) 2.8 Baso % (Auto) 0.6 Neut # (Auto) 6.90 Lymph # (Auto) 3.00 H [place] # (Auto) 0.80 Eos # (Auto) 0.30 Baso # (Auto) 0.10 Abs Immat Gran (auto) 0.00 Imm/Tot Granulo (auto) 0.3 VBG pH 7.363 VBG pCO2 54 H VBG pO2 33.3 VBG HCO3 30 H Sodium 130 L 127 L Potassium 4.5 3.1 L Chloride 97 89 L Carbon Dioxide 28 29 Anion Gap 5 L 9 BUN 12 11 Creatinine 0.6 0.6 Estimated Creat Clear 38.10 38.10 Estimated GFR 90 90 Glucose 77 82 Lactate 0.8 Calcium 8.9 9.2 Phosphorus 3.1 Magnesium 1.8 C-Reactive Protein 2.9 H NT-Pro-B Natriuret Pep 461 TSH 2.880 Urine Color Yellow Urine Appearance Slightly Cloudy A Urine pH 7.5 Ur Specific [place] 1.015 Urine Protein Negative Urine Glucose (UA) Negative Urine Ketones Negative Urine Blood Trace-intact A Urine Nitrite Negative Urine Bilirubin Negative Urine Urobilinogen 0.2 Ur Leukocyte Esterase Negative Urine RBC 0-2 Urine WBC 0-2 Ur Squamous Epith Cells Few Urine Bacteria Few A Preliminary micro results at discharge 08/01/23 18:27 Urine Culture - Preliminary Urine,Clean Catch Culture in Progress Discharge Plan Discharge Disposition: Home, Self-Care Date of Admission: 08/01/23 19:41 Attending Provider on Discharge: Torrie Arce Consulting Providers: Nkechi Marquis Primary Care Provider: Provider,Not a Local Condition: Improved Anticipated Discharge Date/Time: 08/02/23 11:02 Discharge Medications: New oxycodone 5 mg Tablet 5 mg PO Q4H PRNQty: 15 0RF Continued lisinopril-hydrochlorothiazide 20-25 mg tablet 1 tab PO DAILY amlodipine 5 mg tablet 5 mg PO DAILY escitalopram oxalate 20 mg tablet 20 mg PO DAILY PreserVision AREDS 4,296 mcg-226 mg-90 mg capsule 1 cap PO DAILY Discontinued tramadol 50 mg tablet 50 mg PO Q6H PRN (Reason: pain) Discharge Orders: Discharge Order (Routine); Ordered 08/02/23 Ordered By: Torrie Arce Patient Education: Pelvic Fracture (GEN) Additional Instructions: Continue to use Tylenol and Oxycodone as needed for your pain. Use a stool softener as long as you are using Oxycodone. Be aware you are at risk for increased falls while taking this. You may use an OTC lidocaine patch to the hip or low back. Activity Level: Activity as Tolerated Discharge Diet: Regular Follow Up Appointments: Nkechi Marquis PA-C [Physician [employer]] - (Follow up 5-10 days) Provider,Not a Local [Primary Care Provider] - (Will need to establish care at [facility]. First available) Forms: On[employer] Info Instructions Discharge Comments: Once you have decided on a primary clinic, make sure to follow up for ongoing management of your fracture
[2023-08-02 11:23] VITALS: BP 120/66; PULSE 68; RESP 20; TEMP 36.6; O2SAT 98
--- NOTE | 2023-08-02 11:47 | PC.SOCIAL ---
Discharge planning: dairy worker received a referral on the pt for discharge planning. dairy worker checked in with the doctor on duty and it was found that the pt does not need any assistance with discharge planning and will be going back home. dairy worker to follow-up as needed.
--- NOTE | 2023-08-02 12:52 | PC.NURSE ---
Discharge: Patient pleasant and cooperative. Patient vitally stable, lungs clear, BS WNL, IV removed, catheter intact. Patient independent in room with walker. Patient rates pain at most 9/10, 0.5mg of dilauded given once, 5 mg of oxy given once, and lidocaine patch applied to left buttock. Patient urinating and had 1 loose BM. Patient tolerating regular diet. Patient signed belonging sheet and discharge from, and tramadol medication was returned to patient. Patient had no further questions regarding discharge. Patient left the floor by wheelchair to home at 1245.
== END 2023-08-02 12:45 | disposition home or self-care (01) ==
LOC: ED 19:19 → MEDSURG 19:41
PROVIDERS: Family Medicine; Admitting Provider Internal Medicine; Emergency Provider Emergency Medicine; Visit Provider Internal Medicine
DX: M84.454A Pathological fracture, pelvis, initial encounter for fracture (principal); M25.552 Pain in left hip; E87.1 Hypo-osmolality and hyponatremia; E87.6 Hypokalemia; S32.9XXA Fracture of unspecified parts of lumbosacral spine and pelvis, initial encounter for closed fracture; K59.00 Constipation, unspecified; R82.90 Unspecified abnormal findings in urine
CPT/HCPCS: 36415; 72193; 80048; 81001; 82803; 83605; 83735; 83880; 84100; 84443; 85025; 85027; 86140; 87086; 87186; 96361; 96374; 96376; 97110; 97116; 97161; 99283; 99284; 99285; A9270; G0378; J1170; J7030; Q9967

== ENCOUNTER 2023-10-14 13:00 | Outpatient (RCR) | payer MEDICARE, SELFPAY ==
--- NOTE | 2023-08-19 09:55 | PT.OPE ---
PT [place] Outpatient Eval PT [facility] Outpatient Eval Start: 08/19/23 07:44 Freq: Status: Active Protocol: Document 08/19/23 07:44 [email or web address] (Rec: 08/19/23 09:00 ENM [id number]) E-signed By Giesle Giordano, DPT Physical Therapy Outpatient Evaluation Insurance Information Recert Due Date 11/17/23 Insurance Name Medicare B Medical Diagnosis closed fracture of left pelvis fracture of unspecified parts of lumbosacral spine and pelvis, initial encounter for closed fracture Treating Diagnosis impaired gait, left glute and leg pain, muscle weakness, impaired posture, impaired balance Referring MD Nkechi Marquis Subjective Subjective Patient presents to PT for complaint of left glute pain and left leg pain after a closed fracture of left pelvis . Fracture is of the pubic tubercle with extension to superior and inferior pubic rami and left pubic ala. This occurred after a fall when she landed on her side when she was visiting her at a memory facility. After the fall she was able to get up and walk. She was ok for a a couple of days and then she went to the ED. She initially was not given anything for pain. Went in again and had an MRI which showed multiple fractures and a hematoma. Was admitted to the [facility] for pain management. She is using ice/heat oxycodone and advil for pain management now. Lives alone in a single [facility]. Has a cleaning lady that will start coming next week. She was having difficulty with going to the bathroom but that is improving now. When it started: Debbie 2023 after a fall Describes it as: sometimes its sharp otherwise aching all the time Timing: worsens some throughout the day Location: L glute Irritability: mod Severity: mod Pain Comments at its best: 4/10 at its worse: 8-9/10 easing: medication, icing/heat aggravating: walking, sitting, laying down Current Work Status Retired Objective Other/Pertinent Objective Hip ROM: log roll slight pain with end range hip IR passive hip flexion to 90 degs before discomfort brought on Lumbar AROM: FF: able to reach ankles with tightness in B hamstrings Ext: 50% limited with an ache through low back Strength: glute squeeze good knee extensors: 4-/5 B Palpation/joint mobility: + for pain with palpation to L glute med, max, piriformis Gait/balance: Patient ambulates with antalgic gait pattern when not using SEC for support. With SEC she ambulates with flexed posture and uses cane on the wrong side slow to perform STS and using B UE for support needing to physically lift LLE in/out of bed Posture: increased thoracic kyphosis *Patient very fatigued with minimal mobility this session Assessment Assessment/Impression Patient is a 82 year old female presenting with left glute and leg pain after a fall. They fell on their side outside. Their primary complaint is of consistent pain with all mobility. They are managing pains with ice, heat and medication. Initially was having difficulty going to the bathroom after the fall but that is getting better now. Upon assessment patients concordant pains brought on with lumbar ROM, hip ROM, transfers and palpation of left glute musculature. Patient initially uses SEC in the wrong hand when cued and educated she is able to improve sequencing and mechanics with less discomfort . She reports improved pain levels within session when using a 2WW. She is very fatigued within session with minimal activity. Symptoms consistent with pelvis fracture. Jada would greatly benefit from skilled PT to address impairments stated above for return to PLOF after injury. Primary Functional Limitations all functional mobility Plan of Care Rehabilitation Potential Good Physical Therapy Goals In 8-10 visits: 1. Patient will be IND with HEP and self management of symptoms 2. Patient will be able to perform x10 STS with UE use to demonstrate improvements in LE functional strength and activity tolerance 3. Patient will be able to make it through her day with 3 /10 or less pain in order to perform her household duties 4. Patient will be able to comfortably lay at night for improved sleep hygiene 5. Patient will sit through her card game without difficulty or discomfort Coordination/Communication With Referral Source Treatment Plan/Direct Interventions Gait Training,Ice/Cold/ Vasopneumatic,Joint Mobilization,Manual Therapy, Neuromuscular Re-ed,Self-Care/ Home Management,Therapeutic Activities,Therapeutic Exercises Frequency/Duration 2x a week for 2-3 weeks, 1x a week for 4 weeks Patient Will Be Discharged From Therapy Completion of LTG(s), Independent w/HEP Evaluation Billing Untimed Code Treatment Minutes 22 Complexity Low Certification Information Initial Certification Date 08/19/23 Ending Certification Date 11/17/23 Provider Signature Required Yes Provider Signature Shows Agreement With POC & Medical Necessity Physician NPI Number Write NPI# Here Physician Comment/Change : Physician Signature & Date Requested Please Sign/Date Here
== END 2024-01-24 10:03 | disposition home or self-care (01) ==
PROVIDERS: Visit Provider Physician Assistant Surgical
DX: S32.9XXA Fracture of unspecified parts of lumbosacral spine and pelvis, initial encounter for closed fracture (principal); M79.606 Pain in leg, unspecified; M79.18 Myalgia, other site; R26.89 Other abnormalities of gait and mobility; R29.3 Abnormal posture; R26.81 Unsteadiness on feet; Z51.89 Encounter for other specified aftercare
CPT/HCPCS: 97110; 97112; 97116; 97140; 97161; 97530

== ENCOUNTER 2024-08-03 18:40 | Emergency (ER) | payer MEDICARE, SELFPAY ==
--- OUTSIDE RECORDS SUMMARY | 2024-06-21 08:53 | XMS_ITS | Encounter Summary ---
Author Organization [facility] Address [address] [place] [address] Care Team Providers Care Residential Treatment Counselor Name Role Phone Moe Lockwood M.D. Primary Care Provider + [phone] Reason for Referral * Outpatient (Routine) - Authorized Specialty Diagnoses / Procedures Referred By Rudy mota Referred To Contact Diagnoses Exudative Age-Related Macular Degeneration Unspecified Stage Right (HCC) Procedures Intravitreal Injection, Pharmacologic Agent - OD - Right Eye [place] BEVACIZUMAB INJECTION Nasra Haider M.D. [address] [place] [address] Phone: tel: fax: [facility] Region Referral ID Status Reason Start Date Expiration Date V isits Requested Visits Authorized [id number] Authorized 02/29/2024 02/27/2025 4 28 Reason for Visit * Outpatient (Routine) - Authorized Specialty Diagnoses / Procedures Referred By Rudy mota Referred To Contact Diagnoses Exudative Age-Related Macular Degeneration Unspecified Stage Right (HCC) Procedures Intravitreal Injection, Pharmacologic Agent - OD - Right Eye [place] BEVACIZUMAB INJECTION Nasra Haider M.D. [address] [place] [address] Phone: tel: fax: [facility] Region Referral ID Status Reason Start Date Expiration Date V isits Requested Visits Authorized [id number] Authorized 02/29/2024 02/27/2025 4 28 Encounter Details Date Type Department Care Team (Latest Contact Info) Description 06/21/2024 8:53 AM CDT - 06/21/2024 11:59 PM CDT Hospital Encounter Outpatient Procedure Center in [address] [phone] Nasra Haider M.D. [address] [place] [address] Exudative Age-Related Macular Degeneration Unspecified Stage Right (HCC) Discharge Disposition: Home or Self Care Social History Tobacco Use Types Packs/Day Years Used Date Smoking Tobacco: Former Cigarettes Smokeless Tobacco: Never Alcohol Use Standard Drinks/Week Comments Yes 0 (1 standard drink = 0.6 oz pur e alcohol) occasional Humiliation, Afraid, Rape, and Kick questionnair e Answer Date Recorded Within the last year, have y ou been afraid of your partner or ex-partner? No 09/02/2022 Within the last year, have y ou been humiliated or emotionally abused in other ways by your partner or ex-partner? No 09/02/2022 Physically Abused Not on file 09/02/2022 Sexually Abused Not on file 09/02/2022 Overall Financial Resource Strain (CARDIA) Answe r Date Recorded How hard is it for you to pa y for the very basics like food, housing, medical care, and heating? Not hard at all 09/02/2022 PHQ-2 Answer Date Recorded PHQ-2 Score 0 09/08/2023 Exercise Vital Sign Answer Date Recorde d On average, how many days pe r week do you engage in moderate to strenuous exercise (like a brisk walk)? 3 days Minutes of Exercise per Session Not on file 09/02/2022 Hunger Vital Sign Answer Date Recorded Within the past 12 months, y ou worried that your food would run out before you got the money to buy more. Never true 09/03/19 23 Ran Out of Food in the Last Year Not on file 09/02/2022 PRAPARE - Transportation Answer Date Re corded In the past 12 months, has l ack of transportation kept you from medical appointments or from getting medications? No 09/02/2022 Lack of Transportation (Non-Medical) Not on file 09/02/2022 Nutrition Answer Date Recorded On average, how many serving s of fruits and vegetables do you eat per day (serving size is equal to 1 cup or approximately the size of a tennis ball)? 3-5 09/02/2022 Dental Answer Date Recorded Dental: Regular Dentist Yes 09/03/19 Housing Stability Answer Date Recorded What is your living situation today? 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 90 tablet 3 09/08/2023 ibuprofen (ADVIL,MOTRIN) 200 mg capsule Take 600 mg by mouth every 6 (six) hours as needed for pain. lisinopril-hydro CHLOROthiazide 20-25 mg per tabletIndication s:Hypertension Essential Primary Take 1 tablet by mouth daily. 90 tablet 3 09/08/2023 Research IRB [id number] Preservative-Giovani e Artificial Tears 0.4 mL ophthalmic solution Administer into both eyes. vitamins A,C,T-phxz-ukzmv r (for_PRESERVISIO N AREDS) 7,160 Units-113 mg-100 Units per tablet Take 1 tablet by mouth 2 (two) times a day. documented as of this encounter Plan of Treatment Upcoming Encounters Date Type Department Care Team (Late st Contact Info) Description 08/23/2024 12:40 PM CDT [place] [place] [address] Nasra Haider M.D. [address] [place] [address] 09/06/2024 9:15 AM CDT Office Visit Department of Orthopedic Surgery in [address] [phone] Maria Alejandra Lopez D.P.M. [address] [place] [phone] Discharge Disposition: Home or Self Care 09/12/2024 2:30 PM CDT Office Visit Department of Family Medicine, [facility], in [address] [phone] Moe Lockwood M.D. [address] [place] [phone] Discharge Disposition: Home or Self Care 09/12/2024 4:00 PM CDT Appointment Department of Radiology in [address] [phone] Moe Lockwood M.D. [address] [place] [phone] Discharge Disposition: Home or Self Care documented as of this encounter Procedures Procedure Name Priority Date/Time Associated Diagnosis Comments INTRAVITREAL INJECTION, PHARMACOLOGIC AGENT - OD - RIGHT EYE Routine 06/21/2024 9:37 AM CDT Exudative Age-Related Macular Degeneration Unspecified Stage Right (HCC) documented in this encounter Results * Intravitreal Injection, Pharmacologic Agent - OD - Right Eye (06/21/2024 9:37 AM CDT) Narrative García Eagle M.D. - 06/21/2024 9:44 AM CDT Pre-Procedure Verification Pre-procedure verification conducted to verify correct patient identity, procedure to be performed and, as applicable, correct side and site. Patient consent obtained. 02/16/2024. Time Out Confirmed correct patient, procedure, site, and patient consented. Anesthesia Topical anesthesia was used. Pre/Post Procedure prep and meds used were Celluvisc 1-10 drops, Povidone 5% 1-10 drops, Povidone 10% swabs x 3 to lids and lashes, Proparacaine 0.5% 1-10 drops, Tetracaine 0.5% 1-10 drops. Procedure Details Injection: 1.25 mg bevacizumab 25 mg/mL Route: intravitreal, Site: Right Eye [facility]: 69389-225-74 Balanced salt solution irrigation to injected eye after the injection was Done. Hand motion was present. Count fingers was correct. Reviewed instructions and patient verbalizes understanding. Ancillary Staff Ancillary Staff: Tiffanie Padilla RN; Arianne Barragan RN; Kenya Louis RN. Notes Patient oriented to outpatient procedure center. Reviewed process for scheduled procedure, and pain management including pain scale. Patient declines written post-procedure material or previously received brochure. Information reviewed and understanding assessed by teach-back. Follow-up appointments discussed and return schedule given if requested. Right Eye Avastin [facility]: 35648-638-93 Lot# [id number] Exp. 08/30/2024 Visual acuity improved with new glasses. Avastin injection right eye today without complication. Dr. Eagle Nasra Haider M.D. OPHTH CLINIC PROCEDURES Kaleigh schafer Result documented in this encounter Visit Diagnoses Diagnosis Exudative Age-Related Macular Degeneration Unspecified Stage Right (HCC) documented in this encounter Administered Medications Inactive Administered Medications - up to 3 most recent administrations Medication Order MAR Action Action Date Dose Rate Site bevacizumab intraocular injection 1.25 mg (Avastin) 1.25 mg, intravitreal, One-Time Injection, Starting on Jocelyne 06/21/24 at 0944, For 1 doseIndications:Exudative Age-Related Macular Degeneration Unspecified Stage Right (HCC) Given 06/21/2024 9:44 AM CDT 1.25 mg Right Eye documented in this encounter Care Teams Residential Treatment Counselor Relationship Specialty Start Date End Date [facility] Lock[facility]. [facility] [phone] PCP - General Family Medicine 04/11/17 documented as of this encounter
--- OUTSIDE RECORDS SUMMARY | 2024-08-03 18:43 | XMS_ITS | Clinical Summary ---
Author Organization [facility] Address [address] [place] [address] Care Team Providers Care Oem Sales Manager Name Role Phone Moe Lockwood M.D. Primary Care Provider + [phone] Source Comments Patient records contain information from all sites at [facility]. For routine questions regarding patient records, call [phone] during business hours, M-F 8:00 AM - 5:00 PM Central Time. Record requests for emergency care only can be directed to [phone] at any time.[facility] Allergies Active Allergy Reactions Criticality Noted Date Comments Penicillins Rash 08/01/2023 Medications * This document contains information received from the source organization and may not represent a complete record from that organization. CALCIUM CARB/VIT D3/MINERALS (CALCIUM-VITAMI N D ORAL) Calcium 600+D 600 mg-200 intl units oral tablet See Instructions, one tablet bid 4 Active vitamins A,C,E-zinc-neha er (for_PRESERVISI ON AREDS) 7,160 Units-113 mg-100 Units per tablet Take 1 tablet by mouth 2 (two) times a day. Active Research IRB [id number] Preservative-Fr ee Artificial Tears 0.4 mL ophthalmic solution Administer into both eyes. Active ibuprofen (ADVIL,MOTRIN) 200 mg capsule Take 600 mg by mouth every 6 (six) hours as needed for pain. Active escitalopram (Lexapro) 20 mg tabletIndicatio ns:Adjustment Disorder Take 1 tablet (20 mg total) by mouth daily. 90 tablet 3 4 Active lisinopril-hydr oCHLOROthiazide 20-25 mg per tabletIndicatio ns:Hypertension Essential Primary Take 1 tablet by mouth daily. 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 09/30/2022 Intraocular Lens Implant Status Post 09/30/2022 Adjustment Disorder 09/02/2022 Nonexudative Age-Related Mac ular Degeneration Intermediate Dry Stage Left 09/11/2019 Hypertension Essential Primary 04/18/2017 Aneurysm Cerebral Unruptured 01/27/2015 Osteopenia 05/03/2014 Overview (07/28/2017): Osteopenia Smoking Tobacco Use Personal History 02/25/2011 Pain Shoulder Left Resolved Problems Problem Noted Date Diagnosed Date Resolved Date Cataract Senile Nuclear Sclerosis Right 05/20/2017 09/11/2019 Overview (05/20/2017): Added automatically from request for surgery [id number] Cataract Senile Nuclear Sclerosis Left 05/20/2017 09/11/2019 Overview (05/20/2017): Added automatically from request for surgery [id number] Hypertension Essential Benign 05/03/2014 04/18/2017 Overview (07/20/2016): Benign Essential Hypertension Essential hypertension, benign Encounters Date Type Department Care Team Description 07/31/2024 Orders Only [facility] PCP TH MNMoe Lara M.D. 06/26/2024 Clinical Communication Department of Ophthalmology in [address] [phone] García Eagle M.D. 06/21/2024 8:53 AM CDT - 06/21/2024 11:59 PM CDT Hospital Encounter Outpatient Procedure Center in [address] [phone] Nasra Haider M.D. Exudative Age-Related Macular Degeneration Unspecified Stage Right (HCC) Discharge Disposition: Home or Self Care 06/05/2024 9:15 AM CDT Office Visit Department of Orthopedic Surgery in [address] [phone] Maria Alejandra Obando D.P.M. Pain Toe Left (Primary Dx); Pain Toe Right; Thickened Toenail; Callus [place]; Hammer Toe Acquired Left; Hammer Toe Acquired Right; Hallux Valgus Left; Hallux Valgus Right Discharge Disposition: Home or Self Care 05/09/2024 11:00 AM CDT Office Visit Department of Ophthalmology in [address] [phone] García Eagle M.D. 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 (HCC) (Primary Dx) Discharge Disposition: Home or Self Care from Last 3 Months Immunizations Immunization Administration Dates Next Due H1N1 Inj 02/18/2009 HZV (ZOSTAVAX) 05/13/2015,01/22/2015 Influenza high dose QV(65 ye ars or older) (PF) 12/13/2022,12/14/2021 Influenza, Unspecified 12/01/2016,2015,11/29/2014,2013,11/15/2012 PCV13 01/09/2014 PPSV23 11/05/2008 RZV (SHINGRIX) 08/16/2019,08/09/2019,03/13/2019 SARS-COV-2 (COVID-19) - MODE RNA (12 YEARS AND OLDER) Fall Seasonal 12/15/2023,12/13/2022 SARS-COV-2 (COVID-19) - PFIZ ER (Discontinued)(12 years or older) 12/02/2020,05/16/2020,04/23/2020 SARS-COV-2 (COVID-19) - PFIZ ER BIVALENT TS(Discontinued)(12 YEARS OR OLDER) 11/30/2021 SARS-COV-2 (COVID-19) - PFIZ ER TS(Discontinued)(12 years or older) 07/13/2021 Td (Adult), adsorbed 01/13/2009 Tdap 09/28/2018,04/30/2013 influenza trivalent high dos e (HD)(PF) 12/15/2023,12/21/2018,10/25/2017 Family History Medical History Relation Name Comments Diabetes Daughter Pancreatic cancer Father Breast cancer Mother Hypertension Mother Leukemia Mother Cataracts Sister Lymphoma Sister Amblyopia Neg Hx Blindness Neg Hx Glaucoma Neg Hx Macular degeneration Neg Hx Retinal degeneration Neg Hx Retinal detachment Neg Hx Strabismus Neg Hx Relation Name Status Comments Daughter Father Mother Sister Social History Tobacco Use Types Packs/Day Years Used Date Smoking Tobacco: Former Cigarettes Smokeless Tobacco: Never Tobacco Cessation:Counseling Given: Not Answered Alcohol Use Standard Drinks/Week Comments Yes 0 [...] Date Recorded Dental: Regular Dentist Yes 09/03/19 23 Housing Stability Answer Date Recorded What is your living situation today? 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 Gender Identity Female 06/09/2017 8:00 AM CDT Sexual Orientation Not on file Last Filed Vital Signs Vital Sign Reading Time Taken Comments Blood Pressure 126/72 09/08/2023 11:12 AM CDT Pulse 66 09/08/2023 11:12 AM CDT Temperature 36.4 C (97.5 F) 09/08/2023 11:12 AM CDT Respiratory Rate 18 09/02/2022 8:24 AM CDT Oxygen Saturation 99% 08/18/2020 7:54 AM CDT Inhaled Oxygen Concentration - - Weight 68.1 kg (150 lb 2.1 oz) 09/08/2023 11:12 AM CDT Height 158.6 cm (5' 2.44) 09/02/2022 8:24 AM CD T Body Mass Index 27.07 09/02/2022 8:24 AM CDT Plan of Treatment Upcoming Encounters Date Type Department Care Team (Late st Contact Info) Description 08/23/2024 12:40 PM CDT Appointment Outpatient Procedure Center in [address] [phone] Nasra Haider M.D. [address] [place] [address] 09/06/2024 9:15 AM CDT Office Visit Department of Orthopedic Surgery in [address] [phone] Maria Alejandra Lopez D.PCarolyn. [address] [place] [phone] Discharge Disposition: Home or Self Care 09/12/2024 2:30 PM CDT Office Visit Department of Family Medicine, [facility] [place], in [address] [phone] Moe Lockwood M.D. [address] [place] [phone] Discharge Disposition: Home or Self Care 09/12/2024 4:00 PM CDT Appointment Department of Radiology in [address] [phone] Moe Lockwood M.D. [address] [place] [phone] Discharge Disposition: Home or Self Care Health Maintenance Due Date Last Done Comments Visit: Medicare Annual Wellness 1940 Depression Screening (Annual PHQ-2) 02/29/2024 COVID-19 Vaccine ( season) 2024 12/15/2023, 12/13/2022, 11/30/2021, Additional history exists Creatinine Level (Kidney Function Test) 09/07/2024 09/08/2023, 09/02/2022, 08/28/2021, Additional history exists Office Visit for Blood Pressure Check / Re-check 09/07/2024 09/08/2023 Potassium Level 09/07/2024 09/08/2023, 0 07/2022, 08/28/2021, Additional history exists Sodium Level 09/07/2024 09/08/2023, 0 07/2022, 08/28/2021, Additional history exists Visit: Chronic Disease, age 18+ 09/07/2024 09/08/2023 DTaP,Tdap,and Td Vaccines (3 - Td or Tdap) 09/28/2028 09/28/2018, 04/30/2013, 01/13/2009 Zoster Vaccines Completed 08/16/2019, 07/29, 03/13/2019, Additional history exists Influenza Vaccine Completed 12/15/2023, , 12/14/2021, Additional history exists Pneumococcal vaccine (50+ years) Completed 04/02/2024, 01/09/2014, 11/05/2008 RSV vaccine - (32-36 weeks) or 60+ years Completed 04/02/2024 Fall Risk Screen (Annual) Completed 06/21/2024 IPV Vaccines Aged Out No longer eligi ble based on patient's age to complete this topic Medical Devices Implanted Type Area Rope Maker Device Identifier Shelf Expiration Date Model / Serial / Lot Lens Tcn [id number] Bicnvx +22.5d - [id number] - [id number] Implanted:Qty : 1 on 06/27/2017 by García Eagle M.D. at [facility] Ocular Lens [employer] (Previously [employer]) [id number] 03/31/2021 [id number] / [id number] / Lens Tcn [id number] Bicnvx +22.5d - [id number] - [id number] Implanted:Qty : 1 on 07/11/2017 by García Eagle M.D. at [facility] Ocular Lens Left: Eye [employer] (Previously [employer]) 05/23/2021 [id number] / [id number] / Procedures Procedure Name Priority Date/Time Associated Diagnosis Comments INTRAVITREAL INJECTION, PHARMACOLOGIC AGENT - OD - RIGHT EYE Routine 06/21/2024 9:37 AM CDT Exudative Age-Related Macular Degeneration Unspecified Stage Right (HCC) BASIC METABOLIC PANEL, S/P Routine 09/08/2023 10:07 AM CDT Aneurysm Cerebral Unruptured (HCC) Hypertension Essential Primary from Last 3 Months or Most Recently Relevant to Health Maintenance Results * Intravitreal Injection, Pharmacologic Agent - OD - Right Eye (06/21/2024 9:37 AM CDT) García Medley M.D. - 06/21/2024 9:44 AM CDT Pre-Procedure [...] 25 mg/mL Route: intravitreal, Site: Right Eye [facility]: 94030-343-16 Balanced salt solution irrigation to injected eye [...] schedule given if requested. Right Eye Avastin [facility]: 78501-376-99 Lot# [id number] Exp. 08/30/2024 Visual acuity improved with new glasses. Avastin injection right eye today without complication. Dr. Eagle us Nasra Haider M.D. OPHTH CLINIC PROCEDURES Kaleigh l Result * (ABNORMAL) Basic Metabolic Panel (09/08/2023 10:07 AM CDT) Potassium, P 3.6 3.6 - 5.2 mmol/L 09/08/2023 10:48 AM CDT [facility] Sodium, P 131(L) 135 - 145 mmol/L 09/08/2023 10:48 AM CDT [facility] Chloride, P 92(L) 98 - 107 mmol/L 09/08/2023 10:48 AM CDT [facility] Bicarbonate, P 29 22 - 29 mmol/L 09/08/2023 10:48 AM CDT [facility] Anion Gap, P 10 7 - 15 09/08/2023 10:48 AM CDT [facility] BUN (Blood Urea Nitrogen), P 15 6 - 21 mg/dL 09/08/2023 10:48 AM CDT [facility] Creatinine 0.69 0.59 - 1.04 mg/dL 09/08/2023 10:48 AM CDT [facility] Estimated GFR (eGFR) 87 >=60 mL/min/BSA 09/08/2023 10:48 AM CDT [facility] Comment: Estimated GFR calculated using the 2020 CKD_EPI creatinine equation. Calcium, Total, P 9.5 8.8 - 10.2 mg/dL 09/08/2023 10:48 AM CDT [facility] Glucose, P 98 70 - 140 mg/dL 09/08/2023 10:48 AM CDT [facility] Blood (Blood, Venous) 09/08/2023 10:07 AM CDT 09/08/2023 10:21 AM CDT Moe Lockwood M.D. LAB BLOOD ADD-ON Final Resul t [facility] [address] [place] [address], [facility] in [place] [address] [place] [address] from Last 3 Months or Most Recently Relevant to Health Maintenance Insurance [employer] Advance Directives For more information, please contact: [phone] * Full Code (Latest Code Status on File) Date Activated Date Inactivated Comments 07/11/2017 11:02 AM 07/11/2017 1:37 PM Question Answer Comments Full Code: Discussed * Full Code Date Activated Date Inactivated Comments 06/27/2017 11:49 AM 06/27/2017 2:14 PM Question Answer Comments Full Code: Discussed Care Teams Oem Sales Manager Relationship Specialty Start Date End Date Moe Lockwood M.D. [address] [place] [phone] PCP - General Family Medicine 04/11/17
--- OUTSIDE RECORDS SUMMARY | 2024-08-03 18:43 | XMS_ITS | Encounter Summary ---
Author Organization [facility] Address [address] [place] [address] Care Team Providers Care Distribution Spec Name Role Phone Moe Lockwood M.D. Primary Care Provider + [phone] Encounter Details Date Type Department Care Team (Latest Contact Info) Description 06/26/2024 Clinical Communication Department of Ophthalmology in [place], [place] [address] [place] [phone] García Eagle M.D. [address] [place] [phone] Social History Tobacco Use Types Packs/Day Years [...] your living situation today? 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 - 06/26/2024 11:59 AM CDT Patient informed of her next injection * Telephone Encounter - Mariam Barraza C.O.A. - 06/26/2024 8:03 AM CDT Patient would like to schedule her next injection. Thanks [phone] documented in this encounter Plan of Treatment Upcoming Encounters Date Type Department Care Team (Late st Contact Info) Description 08/23/2024 12:40 PM CDT Appointment Outpatient Procedure Center in [address] [phone] Nasra Haider M.D. [address] [place] [address] 09/06/2024 9:15 AM CDT Office Visit Department of Orthopedic Surgery in [address] [phone] Maria Alejandra Lopez D.P.M. [address] [place] [phone] Discharge Disposition: Home or Self Care 09/12/2024 2:30 PM CDT Office Visit Department of Family Medicine, [facility], in [address] [phone] Moe Lockwood M.D. [address] [place] [phone] Discharge Disposition: Home or Self Care 09/12/2024 4:00 PM CDT Appointment Department of Radiology in [address] [phone] Moe Lockwood M.D. [address] [place] [phone] Discharge Disposition: Home or Self Care documented as of this encounter Visit Diagnoses Not on filedocumented in this encounter Care Teams Distribution Spec Relationship Specialty Start Date End Date Moe Lockwood M.D. [address] [place] [phone] PCP - General Family Medicine 04/11/17 documented as of this encounter
--- OUTSIDE RECORDS SUMMARY | 2024-08-03 18:43 | XMS_ITS | Encounter Summary ---
Author Organization [facility] Address [address] [place] [address] Care Team Providers Care Bookkeeping Machine Mechanic Name Role Phone Moe Lockwood M.D. Primary Care Provider + [phone] Reason for Referral * Outpatient (Routine) - Authorized Specialty Diagnoses / Procedures Referred By Rudy mota Referred To Contact Moe Lockwood M.D. [address] [place] [address] Phone: tel: fax: [facility] Region Referral ID Status Reason Start Date Expiration Date V isits Requested Visits Authorized [id number] Authorized 07/31/2024 01/30/2026 1 1 Scheduling Instructions Nurse AWV Do not schedule prior to due date to ensure insurance coverage Visit: Medicare Annual Wellness Never done. Encounter Details Date Type Department Care Team (Late st Contact Info) Description 07/31/2024 [facility] [address] [place] [address] Social History Tobacco Use Types Packs/Day Years [...] your living situation today? 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 [address] [place] [address] 09/06/2024 9:15 AM CDT Office Visit Department of Orthopedic Surgery in [address] [phone] Maria Alejandra Lopez D.P.M. [address] [place] [phone] Discharge Disposition: Home or Self Care 09/12/2024 2:30 PM CDT Office Visit Department of Family Medicine, [facility], in [address] [phone] Moe Lockwood M.D. [address] [place] [phone] Discharge Disposition: Home or Self Care 09/12/2024 4:00 PM CDT Appointment Department of Radiology in [address] [phone] Moe Lockwood M.D. [address] [place] [phone] Discharge Disposition: Home or Self Care Scheduled Referrals Name Type Priority Associated Diagnoses Orde r Schedule Primary Care nurse visit (clinic) - [facility] Region; Medicare Annual Wellness Outpatient Referral Routine Expected: 08/28/2024, Expires: 01/17/2025 documented as of this encounter Visit Diagnoses Not on filedocumented in this encounter Care Teams Bookkeeping Machine Mechanic Relationship Specialty Start Date End Date Moe Lockwood M.D. [address] [place] [phone] PCP - General Family Medicine 04/11/17 documented as of this encounter
[2024-08-03 19:13] VITALS: BP 104/68; PULSE 74; RESP 16; TEMP 36.1; O2SAT 95; BMI 25.6
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
== END 2024-08-03 21:59 | disposition home or self-care (01) ==
PROVIDERS: Emergency Provider Family Medicine
DX: S40.012A Contusion of left shoulder, initial encounter (principal); S40.011A Contusion of right shoulder, initial encounter; S20.212A Contusion of left front wall of thorax, initial encounter; S80.12XA Contusion of left lower leg, initial encounter; V43.52XA Car driver injured in collision with other type car in traffic accident, initial encounter
CPT/HCPCS: 71101; 73560; 93971; 99284; 99285